=== PATIENT | male | born 1940 | race Caucasian/White ===

== ENCOUNTER → 2020-11-15 | Outpatient (CLI) | payer MEDICARE, BC ==
[~2020-11-15] MED LIST: AUGMENTIN 875-1 EACH PO; BUMETANIDE1 MG PO; CARVEDILOL3.125 MG PO; COLCHICINE 0.60.6 MG PO; COREG 25MG TAB25 MG PO; DOXYCYCLINE HY100 MG PO; EPLERENONE25 MG PO; FUROSEMIDE40 MG PO; JANTOVEN1 MG PO; JANTOVEN5 MG PO; K-TAB ER10 MEQ PO; KEFLEX CAP 250250 MG PO; LEVOTHYROXINE25 MCG PO; MEDROL4 MG PO; MUPIROCIN22 GM TOP; MUPIROCIN30 GM TP; SPIRONOLACTONE25 MG PO; VITAMIN D21250 MCG PO; WARFARIN SODIUM4 MG PO; WARFARIN SODIUM5 MG PO; ZYLOPRIM 300 M300 MG PO
== END ==
LOC: EXRD 11:23
DX: N18.30 Chronic kidney disease, stage 3 unspecified (principal); J93.9 Pneumothorax, unspecified
CPT/HCPCS: 71046

== ENCOUNTER 2021-01-16 14:16 | Emergency (ER) | payer MEDICARE, BC ==
[~2021-01-16 14:16] MED LIST changes: -AUGMENTIN 875-1 EACH PO; -BUMETANIDE1 MG PO; -EPLERENONE25 MG PO; -KEFLEX CAP 250250 MG PO; -LEVOTHYROXINE25 MCG PO; -MUPIROCIN30 GM TP; -VITAMIN D21250 MCG PO; -WARFARIN SODIUM4 MG PO; -ZYLOPRIM 300 M300 MG PO
[2021-01-16 16:09] LABS: HEMOGLOBIN 12.5 gm/dl (14.0-17.5); RED BLOOD COUNT 4.45 M/UL (4.20-5.50); WHITE BLOOD COUNT 5.9 K/UL (4.5-11.0)
[2021-01-16] MEDS ORDERED: AUGMENTIN 875-1 EACH PO (17:25)
== END 2021-01-16 17:34 | disposition home or self-care (01) ==
LOC: ER1 14:16
PROVIDERS: Family Medicine
DX: L03.313 Cellulitis of chest wall (principal); I48.0 Paroxysmal atrial fibrillation; J90 Pleural effusion, not elsewhere classified; I11.0 Hypertensive heart disease with heart failure; I50.9 Heart failure, unspecified
CPT/HCPCS: 71045; 80048; 85025; 85610; 86140; 99285

== ENCOUNTER 2021-02-03 10:45 | Inpatient (IN) | payer MEDICARE, BC ==
[~2021-02-03] VITALS: Ht 177.8 cm; Wt 84.8 kg
[~2021-02-03 10:45] MED LIST changes: +AUGMENTIN 875-1 EACH PO
[2021-02-03 15:30] LABS: HEMOGLOBIN 12.3 gm/dl (14.0-17.5); RED BLOOD COUNT 4.4 M/UL (4.20-5.50); WHITE BLOOD COUNT 5.4 K/UL (4.5-11.0)
[2021-02-03] MEDS ORDERED: WARFARIN SODIUM4 MG PO (17:00)
[2021-02-03] MEDS ORDERED: BUMETANIDE1 MG PO (17:02)
[2021-02-03] MEDS ORDERED: LEVOTHYROXINE25 MCG PO (17:02)
[2021-02-03] MEDS ORDERED: EPLERENONE25 MG PO (17:02)
[2021-02-03] MEDS ORDERED: VITAMIN D21250 MCG PO (17:03)
[2021-02-03] MEDS ORDERED: ZYLOPRIM 300 M300 MG PO (17:03)
[2021-02-04 02:29] LABS: HEMOGLOBIN 11.7 gm/dl (14.0-17.5); RED BLOOD COUNT 4.17 M/UL (4.20-5.50); WHITE BLOOD COUNT 6.5 K/UL (4.5-11.0)
[2021-02-06 03:44] LABS: HEMOGLOBIN 11.6 gm/dl (14.0-17.5); RED BLOOD COUNT 4.19 M/UL (4.20-5.50); WHITE BLOOD COUNT 6.3 K/UL (4.5-11.0)
[2021-02-06] MEDS ORDERED: MUPIROCIN30 GM TP (11:50)
[2021-02-06] MEDS ORDERED: KEFLEX CAP 250250 MG PO (11:50)
== END 2021-02-06 16:29 | disposition home or self-care (01) | DRG 920 ==
LOC: PROG CARE 13:52
PROVIDERS: Nurse Practitioner Family; ADMIT Internal Medicine Infectious Disease
DX: T85.79XA Infection and inflammatory reaction due to other internal prosthetic devices, implants and grafts, initial encounter (principal); J90 Pleural effusion, not elsewhere classified; I50.22 Chronic systolic (congestive) heart failure; L03.313 Cellulitis of chest wall; N18.30 Chronic kidney disease, stage 3 unspecified; I48.0 Paroxysmal atrial fibrillation; B95.61 Methicillin susceptible Staphylococcus aureus infection as the cause of diseases classified elsewhere; I25.10 Atherosclerotic heart disease of native coronary artery without angina pectoris; Z20.822 Contact with and (suspected) exposure to COVID-19; I25.5 Ischemic cardiomyopathy; Z79.899 Other long term (current) drug therapy; Z95.1 Presence of aortocoronary bypass graft; Z87.891 Personal history of nicotine dependence; Z95.2 Presence of prosthetic heart valve; Z82.3 Family history of stroke; Z82.49 Family history of ischemic heart disease and other diseases of the circulatory system; Z91.041 Radiographic dye allergy status; Z79.01 Long term (current) use of anticoagulants
CPT/HCPCS: 36415; 71045; 71046; 80048; 80053; 83735; 85025; 85610; 87070; 87077; 87186; 87205; J0692; J1650; J2020; U0002

== ENCOUNTER 2021-04-14 08:20 | Emergency (ER) | payer MEDICARE, BC ==
[~2021-04-14 08:20] MED LIST changes: +BUMETANIDE1 MG PO; +EPLERENONE25 MG PO; +KEFLEX CAP 250250 MG PO; +LEVOTHYROXINE25 MCG PO; +MUPIROCIN30 GM TP; +VITAMIN D21250 MCG PO; +WARFARIN SODIUM4 MG PO; +ZYLOPRIM 300 M300 MG PO
[2021-04-14 08:56] LABS: RED BLOOD COUNT 4.49 M/UL (4.20-5.50); WHITE BLOOD COUNT 5.3 K/UL (4.5-11.0)
== END 2021-04-14 10:37 | disposition home or self-care (01) ==
LOC: ER1 08:20
PROVIDERS: Emergency Medicine
DX: J90 Pleural effusion, not elsewhere classified (principal); I11.0 Hypertensive heart disease with heart failure; I50.9 Heart failure, unspecified; I25.10 Atherosclerotic heart disease of native coronary artery without angina pectoris; E87.6 Hypokalemia; D64.9 Anemia, unspecified; Z95.0 Presence of cardiac pacemaker; Z86.73 Personal history of transient ischemic attack (TIA), and cerebral infarction without residual deficits
CPT/HCPCS: 36600; 71045; 80053; 82550; 82553; 82803; 83735; 83874; 83880; 84484; 85025; 85610; 85730; 93005; 99285

== ENCOUNTER 2021-05-17 08:44 | Emergency (ER) | payer MEDICARE, BC ==
[2021-05-17 10:38] LABS: HEMOGLOBIN 12.6 gm/dl (14.0-17.5); RED BLOOD COUNT 4.27 M/UL (4.20-5.50); WHITE BLOOD COUNT 8.4 K/UL (4.5-11.0)
[2021-05-17 12:16] LABS: BUN/CREATININE RATIO 24 (0-10)
== END 2021-05-17 12:50 | disposition home or self-care (01) ==
LOC: ER1 08:44
PROVIDERS: Physician Assistant
DX: J90 Pleural effusion, not elsewhere classified (principal); I50.9 Heart failure, unspecified; N18.9 Chronic kidney disease, unspecified
CPT/HCPCS: 71045; 71250; 80053; 82550; 82553; 83874; 83880; 84484; 85025; 85610; 93005; 99285

== ENCOUNTER → 2021-05-23 | Outpatient (CLI) | payer MEDICARE, BC | LOC: RAD 12:01 | DX: I35.9 Nonrheumatic aortic valve disorder, unspecified (principal); I25.10 Atherosclerotic heart disease of native coronary artery without angina pectoris; N40.0 Benign prostatic hyperplasia without lower urinary tract symptoms; N18.30 Chronic kidney disease, stage 3 unspecified; I50.22 Chronic systolic (congestive) heart failure; G47.31 Primary central sleep apnea | CPT/HCPCS: 71046 ==

== ENCOUNTER → 2021-05-24 | Outpatient (CLI) | payer MEDICARE, BC | LOC: KOH-I 15:58 | DX: R19.01 Right upper quadrant abdominal swelling, mass and lump (principal); K74.60 Unspecified cirrhosis of liver; K76.6 Portal hypertension; R16.1 Splenomegaly, not elsewhere classified; K57.90 Diverticulosis of intestine, part unspecified, without perforation or abscess without bleeding; K80.80 Other cholelithiasis without obstruction | CPT/HCPCS: 74176 ==

== ENCOUNTER 2021-05-27 09:57 | Emergency (ER) | payer MEDICARE, BC ==
[2021-05-27 11:06] LABS: HEMOGLOBIN 12.3 gm/dl (14.0-17.5); RED BLOOD COUNT 4.24 M/UL (4.20-5.50); WHITE BLOOD COUNT 5.4 K/UL (4.5-11.0)
[2021-05-27 11:42] LABS: BUN/CREATININE RATIO 27 (0-10)
== END 2021-05-27 14:45 | disposition home or self-care (01) ==
LOC: ER1 09:57
PROVIDERS: Physician Assistant
DX: J90 Pleural effusion, not elsewhere classified (principal); I13.0 Hypertensive heart and chronic kidney disease with heart failure and stage 1 through stage 4 chronic kidney disease, or unspecified chronic kidney disease; N18.9 Chronic kidney disease, unspecified; I50.9 Heart failure, unspecified; E78.5 Hyperlipidemia, unspecified; Z20.822 Contact with and (suspected) exposure to COVID-19
CPT/HCPCS: 71045; 80053; 82550; 82553; 83874; 83880; 84484; 85025; 87040; 93005; 99285; U0002

== ENCOUNTER → 2021-05-30 | Outpatient (CLI) | payer MEDICARE, BC | LOC: CT 05-27 13:00 → US 07:39 → CT 07:39 | DX: R19.01 Right upper quadrant abdominal swelling, mass and lump (principal); K76.9 Liver disease, unspecified; K80.20 Calculus of gallbladder without cholecystitis without obstruction | CPT/HCPCS: 76705 ==

== ENCOUNTER → 2021-06-13 | Outpatient (CLI) | payer MEDICARE, BC | LOC: EXRD 08:10 | DX: Z00.00 Encounter for general adult medical examination without abnormal findings (principal); J90 Pleural effusion, not elsewhere classified; R91.8 Other nonspecific abnormal finding of lung field | CPT/HCPCS: 71046 ==

== ENCOUNTER → 2021-08-22 | Outpatient (CLI) | payer MEDICARE, BC | LOC: EXRD 13:13 | DX: Z00.00 Encounter for general adult medical examination without abnormal findings (principal); I35.9 Nonrheumatic aortic valve disorder, unspecified; I25.10 Atherosclerotic heart disease of native coronary artery without angina pectoris; N40.0 Benign prostatic hyperplasia without lower urinary tract symptoms; N18.30 Chronic kidney disease, stage 3 unspecified; I50.22 Chronic systolic (congestive) heart failure; G47.31 Primary central sleep apnea; Z95.2 Presence of prosthetic heart valve; J90 Pleural effusion, not elsewhere classified; R91.8 Other nonspecific abnormal finding of lung field | CPT/HCPCS: 71046 ==